=== PATIENT | female | born 1985 ===

== ENCOUNTER 2024-08-19 16:56 | Outpatient (REF) | payer MEDICAID, SELFPAY ==
--- NOTE | 2024-08-19 14:30 | PAPFT_PTH ---
PATIENT: Noemy Oliver [facility] U#:[id number] AGE/SX: 39/F ROOM: RE08/19/[address]: Vivian García : 1985 BED: DIS: 08/19/2024 SPEC #: [id number] RECD: 08/20/24 12:28 STATUS: [email or web address] REQ #: [id number] SUDHA: 08/19/24 14:[address]: Vivian García DEPT: [facility] Cytology RECD BY: Neeta Jones ENTERED: 08/20/24 12:29 SP TYPE: PAPFT OTHR DR: Unknown,Unknown Tissues: 1 - CX/ENDOCX FOR PAP SMEARS Procedures: PAP THIN PREP/[facility] Screening HPV DNA PROBE Comments: [id number] (HPV 16 & 18/45)
== END 2024-08-19 16:57 | disposition home or self-care (01) ==
LOC: NCHCN 16:56
PROVIDERS: Visit Provider Family Medicine
DX: Z00.00 Encounter for general adult medical examination without abnormal findings (principal); Z12.4 Encounter for screening for malignant neoplasm of cervix
CPT/HCPCS: 88142; 87624